=== PATIENT | female | born 1950 | race Caucasian/White ===

== ENCOUNTER 2016-12-07 09:05 | Observation (INO) | payer MEDICARE, OTHER ==
[~2016-12-07] VITALS: Ht 165.1 cm; Wt 112.4 kg
[~2016-12-07 09:05] MED LIST: ASPIRIN BUFFER325 MG PO; ASPIRIN325 MG PO; MACULAR HEALTH1 EACH PO; NORCO 5-325 TA1 EACH PO; ONE DAILY WOME1 EAC2 PO; PROTONIX40 MG PO; VITAMIN D32000 UNIT PO; ZOFRAN ODT8 MG SL
[2016-12-08] MEDS ORDERED: MAPAP325 MG PO (10:35)
--- NOTE | 2017-01-01 12:15 | OR ---
[facility] [address] [place], [place] [address] Signed DATE OF PROCEDURE: 12/07/16 PREOPERATIVE DIAGNOSES A 13-mm nodule, right thyroid lobe; additional 5 mm nodule x2, right lobe. A 5-mm left lobe cyst. POSTOPERATIVE DIAGNOSES A 13-mm nodule, right thyroid lobe; additional 5 mm nodule x2, right lobe. A 5-mm left lobe cyst. Consider "follicular lesion" on frozen pathology, clinically benign. PROCEDURE: Right thyroid total lobectomy with isthmusectomy. SURGEON: Sushil Ortiz MD ANESTHESIA: General endotracheal (Wolf Rahman CRNA). INDICATIONS This 66-year-old white woman is a patient of Claire Villar PA-C. She has had a thyroid nodule in the right side for a number of years. She recently had repeat ultrasound under the direction of JAKI Galeana and was referred to Dr. Gamez, who saw her on September 04, 2016. The ultrasound had shown a 13-mm nodule in the right thyroid lobe as well as two 5-mm solid nodules. The patient does have family history of thyroid carcinoma in her brother and possibly also her mother. The patient was offered a fine-needle aspiration biopsy but prefers instead minimum thyroid lobectomy given her risk profile and so on. She understands the risks of bleeding, infection, recurrent laryngeal nerve injury, external laryngeal nerve injury, need for additional treatment, parathyroid gland excision unintended and other unforeseen complications related to surgery and wishes to proceed. FINDINGS The thyroid lobe was not excessively large. Nodule within it was soft. Complete right thyroid lobectomy with isthmusectomy was undertaken. The recurrent laryngeal nerve on the right side was easily identified and preserved. At least one parathyroid gland was identified as normal and is likely the superior polar gland. Frozen pathology by Dr. Derik Hammond described only a "follicular lesion" but with little suspicion considering a thin thyroid nodule capsule and consistency of the lesion itself. There were no complications. The left thyroid lobe remains in place. PROCEDURE IN DETAIL Electronically Signed By: SUSHIL ORTIZ MD 01/01/17 1215 PATIENT NAME: HAIM BROWN OPERATIVE REPORT DATE OF : 52 PHYSICIAN: SUSHIL ORTIZ MD REPORT #: [id number] REPORT IS CONFIDENTIAL AND NOT TO BE RELEASED WITHOUT AUTHORIZATION [facility] [address] [place], [place] [address] Signed The patient was brought to the operating room and given a general endotracheal anesthetic. Preoperative antibiotics were given. Sequential compression device stockings used. Heparin was not administered. A tigre lounge position was maintained with slight neck extension. The neck was prepared with a chlorhexidine solution and draped sterilely. A natural skin crease was chosen for incision. Incision was made between the medial aspect of the sternocleidomastoid muscle bilaterally. Dissection was carried through the dermis sharply, and using electrocautery, the subcutaneous tissue, which was considerable was divided as was the platysmal layer. Superior and inferior flaps were developed with blunt and electrocautery dissection. Gelpi retractors were placed and midline strap muscles were elevated and incised along the axis without dividing the muscle at all. Large veins were noted over the strap muscles. The right strap muscles were elevated with a Perez retractor and using sharp dissection freed from the underlying thyroid and sternal thyroid muscles. The thyroid was dissected free away from the strap muscles more fully and the loose areolar tissues laterally, superiorly, and inferiorly, was divided with sharp dissection. Small venous tributaries were secured with 4-0 silk ties and divided. The inferior and superior polar vessels were individually ligated. Some clips were applied for extra security. The thyroid was progressively dissected free and rotated to the midline. The posterior elements were identified and a parathyroid gland in the superior aspect freed with blunt dissection. The inferior polar parathyr oid gland was not certainly identified though efforts were made to do so. Further dissection allowed for division of the ligament of Umanzor and small posterior vessels directly entering the thyroid gland, all of them secured with 4-0 silk ties. A total thyroid lobectomy was the intention and ultimately the thyroid rotated to the midline and freed from the underlying trachea with needlepoint electrocautery. The right recurrent laryngeal nerve was easily identified and was completely unharmed. The right parat h yroid gland was certainly seen and well preserved. Hemostats were applied to the isthmus near the left lobe and the parenchyma of the thyroid divided. The remnants were secured with a 3-0 silk suture. The specimen was sent for frozen pathology. A superior polar nodule was marked as possible parathyroid tissue (intrathyroidal). Ultimately, the frozen pathology was returned as showing only "follicular lesion" but clinically with little suspicion for malignancy in fact. Irrigation had been undertaken in the neck. There was no evidence of ongoing bleeding. The strap muscles were reapproximated at the midline with interrupted 2-0 Vicryl. The platysmal layer reapproximated with interrupted 3-0 Vicryl and skin closed with a running subcuticular 4-0 Vicryl. S cristhian-Strips were applied as was a Mepilex silver sponge dressing and an OpSite. The patient tolerated the procedure well. Blood loss was essentially none. There were no complications. Electronically Signed By: SUSHIL ORTIZ MD 01/01/17 1215 PATIENT NAME: HAIM BROWN OPERATIVE REPORT DATE OF : 52 PHYSICIAN: SUSHIL ORTIZ MD REPORT #: [id number] REPORT IS CONFIDENTIAL AND NOT TO BE RELEASED WITHOUT AUTHORIZATION [address] [address] Signed MD SANDRA Jorgensen/Rivera /[id number] cc: MD Claire Victor PA-C Electronically Signed By: SUSHIL ORTIZ MD 01/01/17 1215 PATIENT NAME: HAIM BROWN OPERATIVE REPORT DATE OF : 52 PHYSICIAN: SUSHIL ORTIZ MD REPORT #: [id number] REPORT IS CONFIDENTIAL AND NOT TO BE RELEASED WITHOUT AUTHORIZATION
== END 2016-12-08 13:00 | disposition home or self-care (01) ==
LOC: DS 09:05 → MS 14:50 → DS 15:37 → MS 12-08 13:00
PROVIDERS: ADMIT Surgery
PROC: 0GTH0ZZ Resection of Right Thyroid Gland Lobe, Open Approach (ICD-10-PCS; principal; 2016-12-07 10:45)
DX: D34 Benign neoplasm of thyroid gland (principal); G47.30 Sleep apnea, unspecified; E66.9 Obesity, unspecified; Z80.8 Family history of malignant neoplasm of other organs or systems; Z88.5 Allergy status to narcotic agent; Z68.41 Body mass index [BMI] 40.0-44.9, adult; Z87.891 Personal history of nicotine dependence; Z79.82 Long term (current) use of aspirin
CPT/HCPCS: 00320; 84155; 84165; 88307; 88331; 88342; 96361; G0378; J0330; J0690; J1100; J2250; J2370; J2405; J2704; J2765; J3010; J7120

== ENCOUNTER 2017-11-01 08:10 | Day surgery (SDC) | payer MEDICARE, OTHER ==
[~2017-11-01] VITALS: Ht 165.1 cm; Wt 111.1 kg
[~2017-11-01 08:10] MED LIST changes: +LOSARTAN POTASS50 MG PO; +MAPAP325 MG PO
--- NOTE | 2017-11-01 09:44 | NUR ---
11/01/17 0944 Varsha Srinivasan 0937 PT ARRIVED TO PACU WITH ORAL AIRWAY IN PLACE ON 10L VIA MASK. PT ABLE TO MAINTAIN AIRWAY, RESP EVEN AND UNLABORED. PT NONAROUSABLE.
--- NOTE | 2017-11-02 05:51 | OR ---
[facility] [address] [place], [place] [address] Signed DATE OF OPERATION: 11/01/2017 SURGEON: Rosalina Brownlee MD PREOPERATIVE DIAGNOSIS: Screening. POSTOPERATIVE DIAGNOSES: 1. Moderate left-sided diverticulosis. 2. A 4-mm rectal polyps x2 at 8 cm. PROCEDURES PERFORMED: Colonoscopy with biopsy. ESTIMATED BLOOD LOSS: None. 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 She has undergone previous abdominal surgeries, but for some reason, colonoscopy bothered her. She says she has no lower GI complaints and there is no family history of colon cancer or polyps. She said Versed and Valium never seem to work. I think that was part of her concern. I explained to Linda that we now have propofol and that there is no human being, who could stay awake with the propofol infusion. In the office, I gave her a booklet on colonoscopy, we looked it at that together. She understands there is risk including, but not limited to gas bloating, crampy abdominal pain, bleeding, perforation, requiring surgery, and missed diagnosis. Because of her need for propofol and her obesity and her heavy full neck and her obstructive sleep apnea, we asked that anesthesia provider help us with increased monitoring of the airway as well as propofol infusion. She had expressed understanding and wished to proceed. PROCEDURE NOTE: Linda was taken into our endoscopy suite and placed in the left lateral decubitus position. She was given IV sedation with propofol per our nurse loom overhauler. After this, a digital rectal exam was performed and this was unremarkable. The adult colonoscope was introduced and advanced all around into the cecum under direct visualization of camera. It took a few minutes to get up through sigmoid colon and up out of the pelvis. We used a little extra propofol and some extra abdominal compression and finally got the scope into the left colon, where it opened up nicely. Nevertheless, it continued to drag a bit in the sigmoid colon, but it advanced quite readily with Electronically Signed By: ROSALINA BROWNLEE MD 11/02/17 0551 PATIENT NAME: LINDA BROWN OPERATIVE REPORT DATE OF : 52 REPORT #: [id number] PHYSICIAN: ROSALINA BROWNLEE MD PCP: TIM ZUNIGA PAC REPORT IS CONFIDENTIAL AND NOT TO BE RELEASED WITHOUT AUTHORIZATION [facility] [address] [place], [place] [address] Signed copious amounts of lubrication. Her prep was quite good. The scope was then slowly withdrawn. She does have moderate diverticula throughout the left side of her colon. In the rectum, she had 2 tiny polyps about 4-mm in diameter. They were probably 8 cm inside the anus. They were both easily removed with a hot biopsy forceps. Upon retroflexion of the scope, I did not see any additional pathology noted above the anal canal. After this, the gas was suctioned out and the colonoscope removed. Linda tolerated the procedure quite well. RECOMMENDATIONS: I will see Linda back in my office in 7 to 14 days to review her pathology report. I suspect these will be hyperplastic polyps. If that is the case, she can follow up in 10 years. Rosalina Brownlee MD ALB/MODL /[id number] cc: JAKI Pastor MD Patient's Chart Copies: ROSALINA BROWNLEE MD ~ Electronically Signed By: ROSALINA BROWNLEE MD 11/02/17 0551 PATIENT NAME: LINDA BROWN OPERATIVE REPORT DATE OF : 52 REPORT #: [id number] PHYSICIAN: ROSALINA BROWNLEE MD PCP: TIM ZUNIGA PAC REPORT IS CONFIDENTIAL AND NOT TO BE RELEASED WITHOUT AUTHORIZATION
== END 2017-11-01 10:40 | disposition home or self-care (01) ==
LOC: DS 08:10 → OPS 08:10 → DS 09:00 → OPS 09:00
PROVIDERS: Colon & Rectal Surgery
PROC: 0DBE8ZZ Excision of Large Intestine, Via Natural or Artificial Opening Endoscopic (ICD-10-PCS; principal; 2017-11-01 09:00)
DX: Z12.11 Encounter for screening for malignant neoplasm of colon (principal); K63.5 Polyp of colon; K57.30 Diverticulosis of large intestine without perforation or abscess without bleeding; I10 Essential (primary) hypertension; J45.909 Unspecified asthma, uncomplicated; E66.9 Obesity, unspecified; M19.90 Unspecified osteoarthritis, unspecified site; K21.9 Gastro-esophageal reflux disease without esophagitis; I34.0 Nonrheumatic mitral (valve) insufficiency; I89.0 Lymphedema, not elsewhere classified; G89.29 Other chronic pain; Z88.5 Allergy status to narcotic agent; Z87.891 Personal history of nicotine dependence; Z88.8 Allergy status to other drugs, medicaments and biological substances; Z68.41 Body mass index [BMI] 40.0-44.9, adult; Z79.82 Long term (current) use of aspirin; Z79.899 Other long term (current) drug therapy
CPT/HCPCS: J2704; J7120

== ENCOUNTER 2019-07-05 19:49 | Emergency (ER) | payer MEDICARE, OTHER ==
[~2019-07-05] VITALS: Ht 165.1 cm; Wt 111.1 kg
--- NOTE | 2019-07-06 11:01 | EKG ---
[facility] [address] [facility] [place] [address] Signed Normal sinus rhythm Minimal voltage criteria for LVH, may be normal variant Borderline ECG When compared with ECG of 24-NOV-2016 12:42, Questionable change in QRS axis Confirmed by GA PATEL MD ([id number]) on 07/06/2019 11:01:09 AM Electronically Signed By: GA PATEL MD 07/06/19 1101 PATIENT NAME: HAIM BROWN Electrocardiogram DATE OF : 52 PHYSICIAN: GA PATEL MD REPORT #: [id number] REPORT IS CONFIDENTIAL AND NOT TO BE RELEASED WITHOUT AUTHORIZATION
== END 2019-07-05 21:50 | disposition home or self-care (01) ==
LOC: ED 19:49
DX: R07.89 Other chest pain (principal); E66.9 Obesity, unspecified; J45.909 Unspecified asthma, uncomplicated; Z88.5 Allergy status to narcotic agent; Z79.899 Other long term (current) drug therapy; Z79.82 Long term (current) use of aspirin
CPT/HCPCS: 71045; 80053; 83735; 84484; 85025; 93005; 93010; 99285-25

== ENCOUNTER 2020-04-08 08:15 | Day surgery (SDC) | payer MEDICARE, OTHER ==
[~2020-04-08] VITALS: Ht 165.1 cm; Wt 109.1 kg
[~2020-04-08 08:15] MED LIST changes: +HYDROCHLOROTHIA25 MG PO
--- NOTE | 2020-04-08 09:22 | NUR ---
CORINNA MANZANARES ON WARM. EXTRA WARM BLANKETS GIVEN.
--- NOTE | 2020-04-08 09:51 | NUR ---
up to bsc voids preop.
--- NOTE | 2020-04-08 11:42 | NUR ---
04/08/20 1142 Sonia Monk 1058 PT ARRIVED IN PACU WIDE AWAKE ASKING FOR BATHROOM. 1105 UP TO BSC WITH ONE PERSON ASSIST. VOIDED. GETTING DRESSED AT BEDSIDE WITH HELP. 1115 SITTING UP IN WC DRINKING JUICE AND EATING CRACKERS. 1125 DC INSTRUCTIONS GIVEN. ALL QUESTIONS ANSWERED. LEFT VIA W/C. INSTRUCTIONS GIVEN TO PORFIRIO AT CAR. RING IN PT'S PURSE AND PORFIRIO NOTIFIED OF THIS.
--- NOTE | 2020-04-09 08:05 | OR ---
[facility] [address] [place], [place] [address] Signed DATE OF OPERATION: 04/08/2020 SURGEON: Rosalina Sheppard MD PREOPERATIVE DIAGNOSIS: A 10 to 12 mm subcutaneous mass, left medial arm. POSTOPERATIVE DIAGNOSIS: A 10 to 12 mm subcutaneous mass, left medial arm. PROCEDURE: Excision of subcutaneous mass, left medial arm. ESTIMATED BLOOD LOSS: None. 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 She said it was quite small and it first started about a year ago; maybe this size of a grain of rice, it is now up to about 10 mm in diameter. She told me her brother had a lymphoma that started in his upper arm. Her sister then of a sarcoma of the breast. The patient herself underwent bilateral mastectomies back in the , for what sounds like fibrocystic disease along with some precancer cells. On exam, the lesion is mobile, but it is a little deeper than usual. Her knowledge has never been infected to come to the surface. Her primary care provider asked her to see me with respect to the above. She ended up with an MRI of her arm and the exact etiology is not clear. She wanted to have it removed for definitive diagnosis and treatment. In the office, I explained to Linda we could make a radial incision over this area and remove it in the operating room. We could do this under monitored anesthesia care with some local anesthetic. She understands expected intraop and postop course. There is risk of surgery including, but not limited to bleeding, infection, scarring, change in contour of the skin as well as possible need for additional surgery based on pathology results. She had expressed understanding and wished to proceed. PROCEDURE NOTE: I met with the patient in our preop area. We were able to both identify the lesion and marked that appropriately. After this, she was taken in the operating room and placed in the supine position under monitored anesthesia care. She was given preoperative antibiotics along with subcutaneous heparin. SCDs were utilized. She was then prepped and draped in the usual sterile fashion. Local anesthetic was injected in and around Electronically Signed By: ROSALINA SHEPPARD MD 04/09/20 0805 PATIENT NAME: LINDA BROWN OPERATIVE REPORT DATE OF : 52 REPORT #: [id number] PHYSICIAN: ROSALINA SHEPPARD MD PCP: TIM ZUNIGA PAC REPORT IS CONFIDENTIAL AND NOT TO BE RELEASED WITHOUT AUTHORIZATION [facility] [address] [place], [place] [address] Signed the lesion. A radial incision was made over the lesion, carried down around the lesion bluntly with the pean clamps. The entire lesion was thus removed. 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 The wound was irrigated. Then, the dermis was closed with interrupted 5-0 subcuticular Monocryl sutures. The skin edges were reapproximated with a running 5-0 fast absorbing plain gut suture. Dry gauze and tape were applied. The patient was then transferred to her hospital bed and taken into recovery room in stable condition. She tolerated the procedure quite well. Rosalina Sheppard MD ALB/MODL /[id number] cc: MAKAYLA ZUNIGA, Physician Insurance Sales Manager Rosalina Sheppard MD Copies: ROSALINA SHEPPARD MD ~ Electronically Signed By: ROSALINA SHEPPARD MD 04/09/20 0805 PATIENT NAME: LINDA BROWN OPERATIVE REPORT DATE OF : 52 REPORT #: [id number] PHYSICIAN: ROSALINA SHEPPARD MD PCP: TIM ZUNIAG PAC REPORT IS CONFIDENTIAL AND NOT TO BE RELEASED WITHOUT AUTHORIZATION
--- NOTE | 2020-04-10 14:40 | PATH ---
[facility] [address] [place], [place] [address] Signed SPECIMEN(S): A LEFT MEDIAL ARM SPECIMEN SOURCE: A. LEFT MEDIAL ARM CLINICAL HISTORY: Excise subcutaneous mass medial left arm. FINAL PATHOLOGIC DIAGNOSIS: "Sub-c mass left arm," excision: - Fragments of angiolipoma. [id number] MICROSCOPIC EXAMINATION: Histologic sections of all submitted blocks are examined by light microscopy. These findings, together with the gross examination, support the pathologic diagnosis. GROSS DESCRIPTION: The specimen, labeled "TS, A," and designated on the requisition "sub-c mass left arm," is received in formalin and consists of a 1 g, thinly encapsulated, yellow, lobulated, fibrofatty, 2.0 x 1.7 x 0.8 cm tissue mass. The external surface is inked blue and the specimen is cross-sectioned to reveal yellow, homogenous, grossly unremarkable tissue. Tube Roller sections are submitted in one cassette (A1). AI (under the direct supervision of a pathologist) The Gross Description was prepared using a voice recognition system. The report was reviewed for accuracy; however, sound-alike word errors, addition and/or deletions may occur. If there is any question about this report, please contact Client Services. PERFORMING LABORATORY: The technical component was performed by [facility], [address] [place] [address] (Barrel Washer: Brittani Perkins MD; CLIA# [id number]). Professional interpretation was performed by [facility], [address] [address] (CLIA# [id number]). Diagnostician: Antoine Kramer DO Pathologist PATIENT NAME: HAIM BROWN PATHOLOGY DATE OF : 52 REPORT #: [id number] PHYSICIAN: [facility] PCP: TIM ZUNIGA PAC REPORT IS CONFIDENTIAL AND NOT TO BE RELEASED WITHOUT AUTHORIZATION [address] [address] Signed Electronically Signed 04/10/2020 Copies: ~ PATIENT NAME: HAIM BROWN PATHOLOGY DATE OF : 52 REPORT #: [id number] PHYSICIAN: [facility] PCP: TIM ZUNIGA PAC REPORT IS CONFIDENTIAL AND NOT TO BE RELEASED WITHOUT AUTHORIZATION
== END 2020-04-08 11:25 | disposition home or self-care (01) ==
LOC: OPS 08:15 → DS 08:15
PROVIDERS: ATTEND Colon & Rectal Surgery
PROC: 0JBH0ZZ Excision of Left Lower Arm Subcutaneous Tissue and Fascia, Open Approach (ICD-10-PCS; principal; 2020-04-08 09:30)
DX: D17.22 Benign lipomatous neoplasm of skin and subcutaneous tissue of left arm (principal); I10 Essential (primary) hypertension; J45.909 Unspecified asthma, uncomplicated; K21.9 Gastro-esophageal reflux disease without esophagitis; E66.9 Obesity, unspecified; G47.33 Obstructive sleep apnea (adult) (pediatric); Z79.82 Long term (current) use of aspirin; Z79.899 Other long term (current) drug therapy; Z88.5 Allergy status to narcotic agent; Z88.8 Allergy status to other drugs, medicaments and biological substances; Z91.09 Other allergy status, other than to drugs and biological substances; Z87.891 Personal history of nicotine dependence; Z68.41 Body mass index [BMI] 40.0-44.9, adult
CPT/HCPCS: 00300; J0690; J1100; J1644; J1885; J2001; J2405; J2704; J3010; J7121

== ENCOUNTER 2024-07-21 18:07 | Emergency (ER) | payer MEDICARE, OTHER ==
[~2024-07-21] VITALS: Ht 162.6 cm; Wt 107.4 kg
[2024-07-21 19:47] LABS: BILIRUBIN, URINE NEGATIVE (negative); BLOOD/HGB, URINE NEGATIVE (Negative); KETONE, URINE NEGATIVE (Negative); LEUK ESTERASE, URINE NEGATIVE (negative); NITRITE, URINE NEGATIVE (negative)
[2024-07-21] MEDS ORDERED: FAMOTIDINE 20 MG/ 2 ML VIAL IV ONE (20:30)
[2024-07-21] MEDS ORDERED: KETOROLAC TROMETHAMINE 15 MG/ML VIAL IV ONE (20:30)
[2024-07-21] MEDS ORDERED: ondansetron HCL 4 MG/2 ML VIAL IV ONE (20:30)
[2024-07-21 20:49] LABS: BASOPHILS 0.5 % (0-2); EOSINOPHILS 1.6 % (0-6); HEMATOCRIT 41.5 % (35.0-50.0); HEMOGLOBIN 13.9 g/dL (12.0-18.0); LYMPHOCYTES 24.4 % (24-44); MCH 26.8 (27-36); MCHC 33.5 g/dl (30-36); MONOCYTES 9.8 % (0-12); NEUTROPHILS 63.7 % (39-80); PLATELET COUNT 262 K/uL (140-440); RBC 5.18 M/ul (4.3-5.7)
[2024-07-21 21:14] LABS: ALBUMIN 4.1 g/dL (3.4-5.0); ALBUMIN/GLOBULIN RATIO 0.93 (1.1-2.4); ANION GAP 10.5 (7-21); BILIRUBIN, TOTAL 0.9 mg/dL (0.2-1.0); BUN/CREATININE RATIO 15.29 (6.0-28.6); CALCIUM 9.8 mg/dL (8.5-10.1); CREATININE, SERUM 0.85 mg/dL (0.55-1.02); POTASSIUM 3.5 mmol/L (3.5-5.1); PROTEIN, TOTAL 8.5 g/dL (6.4-8.2)
[2024-07-21 23:10] VITALS: BP 163/62
--- NOTE | 2024-07-23 12:12 | EKG ---
[facility] [address] [facility] [place], [place] [address] Signed Sinus rhythm with 1st degree AV block Otherwise normal ECG When compared with ECG of 07-APR-2020 15:55, No significant change was found Confirmed by Socorro Ta DO ([id number]) on 07/23/2024 12:12:31 PM Electronically Signed By: SOCORRO TA DO 07/23/241211 PATIENT NAME: HAIM BROWN Electrocardiogram DATE OF : 52 PHYSICIAN: SOCORRO TA DO REPORT #: [id number] REPORT IS CONFIDENTIAL AND NOT TO BE RELEASED WITHOUT AUTHORIZATION
== END 2024-07-21 23:05 | disposition home or self-care (01) ==
LOC: ED 18:07
PROVIDERS: Internal Medicine
DX: R10.31 Right lower quadrant pain (principal); Z88.5 Allergy status to narcotic agent; Z79.82 Long term (current) use of aspirin; Z79.899 Other long term (current) drug therapy
CPT/HCPCS: 36415; 74177; 80053; 81003; 83690; 83735; 83880; 84484; 85025; 93005; 93010; 96375; 99284-25; J1885; Q9967